=== PATIENT | female | born 1965 | race African-American/Black ===

== ENCOUNTER 2017-12-13 07:24 | Day surgery (SDC) | payer MEDICARE, OTHER ==
[~2017-12-13 07:24] MED LIST: SUCCINYLCHOLINE CHLORIDE 100 MG/5 ML SYG IV
[2017-12-13 08:12] LABS: ADD MAN DIFF? NO
[2017-12-13 08:19] LABS: BASOPHILS % 0.8 % (0.0-2.0); EOSINOPHILS # 0.2 10^3/ul (0.0-0.5); HEMATOCRIT 41.9 % (37.0-47.0); HEMOGLOBIN 13.9 g/dl (12.0-16.0); HOLD TRANSMISSIONS 1; LYMPHOCYTES # 1.3 10^3/ul (0.8-2.9); LYMPHOCYTES % 33.6 % (15.0-51.0); MEAN CORPUSCULAR HEMOGLOBIN 29.3 pg (29.0-33.0); MEAN CORPUSCULAR HGB CONC 33.2 g/dl (32.0-37.0); MEAN CORPUSCULAR VOLUME 88.2 fl (82.0-101.0); MONOCYTE # 0.5 10^3/ul (0.3-0.9); MONOCYTES % 11.4 % (0.0-11.0); NEUTROPHILS % 49.9 % (39.0-77.0); PLATELET COUNT 218 10^3/UL (140-415); RED BLOOD COUNT 4.75 10^6/ul (4.20-5.40); RED CELL DISTRIBUTION WIDTH 11.9 % (11.5-14.5)
[2017-12-13] MEDS ORDERED: CEFAZOLIN 2 GM/50 ML (PMX) 50 ML IVPB (08:30)
[2017-12-13] MEDS ORDERED: SOD CHLORIDE 0.9% 1,000 ML IV (08:30)
[2017-12-13 08:34] LABS: INR 0.84; PROTIME 11.6 Sec (11.9-14.9); PT RATIO 0.9
[2017-12-13 08:35] LABS: PARTIAL THROMBOPLASTIN TIME 29.3 Sec (25.0-35.0)
[2017-12-13 08:37] LABS: ALANINE AMINOTRANSFERASE 24 IU/L (13-69); ALKALINE PHOSPHATASE 93 IU/L (42-121); ANION GAP 13 (8-16); ASPARTATE AMINO TRANSFERASE 20 IU/L (15-46); BILIRUBIN,INDIRECT 0.2 mg/dl (0-1.1); BILIRUBIN,TOTAL 0.2 mg/dl (0.2-1.3); CARBON DIOXIDE 26 mmol/L (21-31); CHLORIDE 108 mmol/L (97-110); GLUCOSE 97 mg/dl (70-220)
[2017-12-13 08:38] LABS: ALBUMIN/GLOBULIN RATIO 1.08; TOTAL PROTEIN 7.7 g/dl (6.1-8.1)
[2017-12-13 08:55] LABS: BLOOD UREA NITROGEN 13 mg/dl (7-20); CALCIUM 9.1 mg/dl (8.4-10.2); CREATININE 0.68 mg/dl (0.44-1.00); SODIUM 143 mmol/L (135-144)
[2017-12-13] MEDS ORDERED: MIDAZOLAM 1 MG/ML 2 ML INJ (09:10)
[2017-12-13] MEDS ORDERED: METOCLOPRAMIDE 10 MG INJ (09:31)
[2017-12-13] MEDS ORDERED: FENTAnyl 50 MCG/ML VIAL (09:31)
[2017-12-13] MEDS ORDERED: ONDANSETRON 4 MG INJ (09:31)
[2017-12-13] MEDS ORDERED: PROPOFOL 20 ML ×2 (09:31→10:05)
[2017-12-13] MEDS ORDERED: CEFAZOLIN 1 GM INJ (09:42)
[2017-12-13] MEDS ORDERED: METOPROLOL 5 MG INJ (09:43)
[2017-12-13] MEDS ORDERED: EPINEPHrine 1 MG INJ ×2 (09:57→10:05)
[2017-12-13] MEDS ORDERED: BUPIVACAINE 0.5% (SDV) 30 ML INJ (09:57)
[2017-12-13] MEDS ORDERED: HYDROmorphONE (0.2 MG/ML) 10ML SYG IV ×3 (10:00→10:32)
[2017-12-13] MEDS ORDERED: hydrALAzine 20 MG INJ IV (10:00)
[2017-12-13] MEDS ORDERED: DIPHENHYDRAMINE 50 MG INJ IV (10:00)
[2017-12-13] MEDS ORDERED: LABETALOL HCL 20MG INJ IV (10:00)
[2017-12-13] MEDS ORDERED: OXYCODONE/ACETAMINOPHEN (5/325) TAB PO ×2 (10:00)
[2017-12-13] MEDS ORDERED: ROCURONIUM 50 MG INJ (10:05)
[2017-12-13] MEDS ORDERED: KETOROLAC 30 MG INJ (10:10)
[2017-12-13] MEDS ORDERED: GLYCOPYRROLATE 0.4 MG INJ (10:10)
[2017-12-13] MEDS ORDERED: NEOSTIGMINE 3 MG/3 ML SYRINGE (10:10)
[2017-12-13] MEDS: BUPIVACAINE 0.5% (SDV) 30 ML INJ (10:39)
[2017-12-13] MEDS: HYDROmorphONE (0.2 MG/ML) 10ML SYG IV (10:40)
[2017-12-13] MEDS: ONDANSETRON 4 MG INJ IV (10:41)
[2017-12-13] MEDS: MEPERIDINE 25 MG INJ IV (10:41)
== END 2017-12-13 12:05 | disposition home or self-care (01) ==
LOC: SDS 07:24
DX: D17.1 Benign lipomatous neoplasm of skin and subcutaneous tissue of trunk (principal)
CPT/HCPCS: 21554; 71045; 80053; 84703; 85025; 85610; 85730; 88300; 93005